=== PATIENT | male | born 1940 | race Caucasian/White ===

== ENCOUNTER → 2017-12-09 | Outpatient (CLI) | payer OTHER, BC ==
[~2017-12-09] MED LIST: FUROSEMIDE 40 MG/4 ML VIAL ONE
== END ==
LOC: FIMAGING 10:50
PROVIDERS: ATTEND Specialist
DX: N13.30 Unspecified hydronephrosis (principal); R93.422 Abnormal radiologic findings on diagnostic imaging of left kidney
CPT/HCPCS: 78708; A9562; J1940

== ENCOUNTER → 2018-08-23 | Outpatient (CLI) | payer OTHER, BC | LOC: FIMAGING 10:00 | PROVIDERS: ATTEND Specialist | DX: N13.30 Unspecified hydronephrosis (principal) | CPT/HCPCS: 78708; A9562; J1940 ==